=== PATIENT | male | born 1985 | race Caucasian/White ===

== ENCOUNTER 2019-04-21 08:09 | Day surgery (SDC) | payer BC ==
[~2019-04-21] VITALS: Ht 203.2 cm; Wt 130.6 kg
[2019-04-21] VITALS (12 sets, daily range): BP systolic 107–157; BP diastolic 60–93
--- NOTE | 2019-04-21 07:09 | Pre-Procedure Note/Attestation ---
Pre-Procedure Note/Attestation Complete Prior to Procedure Planned Procedure: right Procedure Narrative: rt ankle ORIF Indications for Procedure Pre-Operative Diagnosis: rt ankle fracture Attestation I attest that I discussed the nature of the procedure; its benefits; risks and complications; and alternatives (and the risks and benefits of such alternatives ), prior to the procedure, with the patient (or the patient's legal sales representative metals). I attest that, if there was a reasonable possibility of needing a blood transfusion, the patient (or the patient's legal sales representative metals) was given the [facility] standardized written summary, pursuant to the Bal[place] Blood Safety Act ([place] Health and Safety Code # 1645, as amended). I attest that I re-evaluated the patient just prior to the surgery and that there has been no change in the patient's H&P, except as documented below: none Lalo Gaffney MD Apr 21, 2019 07:09
[~2019-04-21 08:09] MED LIST: ALPRAZOLAM1 MG ORAL; BUPROPION XL300 MG ORAL; DIAZEPAM5 MG ORAL; IBUPROFEN600 MG ORAL; NAPROXEN500 M2 ORAL; OXYCODONE-ACET1 EAC3 ORAL; TRILEPTAL600 MG PO; ceFAZolin 1gm IVPB IVPB ONE; celeBREX 200mg Cap **SURGERY PATIENTS ONLY ORAL ONE; oxyCONTIN 20mg tab ORAL ONE
[2019-04-21] MEDS ORDERED: HYDROmorphone 1mg/ml Carpuject SUBQ PRN (09:00)
[2019-04-21] MEDS ORDERED: HYDROcodone/Acetamin 5/325 tab ORAL PRN (09:00)
[2019-04-21] MEDS ORDERED: Tylenol #3 tab (300mg/30mg) ORAL PRN (09:00)
[2019-04-21] MEDS ORDERED: oxyCONTIN 20mg tab ORAL ONE (09:05)
[2019-04-21] MEDS ORDERED: celeBREX 200mg Cap **SURGERY PATIENTS ONLY ORAL ONE (09:05)
[2019-04-21] MEDS ORDERED: NeoSporin Gu Irrig 1ml Amp IRRIG ONE (09:19)
[2019-04-21] MEDS ORDERED: Bacitracin 50000 Units Vial ONE (09:19)
[2019-04-21] MEDS ORDERED: Sterile Water Irrig 1000ml IRRIG ONE (09:30)
[2019-04-21] MEDS ORDERED: Ketorolac 30mg Inj ONE (09:30)
[2019-04-21] MEDS ORDERED: NS Irrig 1000ml ONE (09:30)
[2019-04-21] MEDS ORDERED: LR 1000ml ONE (09:30)
[2019-04-21] MEDS ORDERED: Midazolam 2mg/2ml Inj ONE ×2 (09:39→12:20)
[2019-04-21] MEDS ORDERED: Morphine Sulfate 10mg/ml Inj ONE (09:44)
[2019-04-21] MEDS ORDERED: Acetaminophen (Non formulary) 100 ML IV ONE (10:00)
[2019-04-21] MEDS ORDERED: fentaNYL 100 mcg/2 mL IV ONE (10:02)
[2019-04-21] MEDS ORDERED: Metoclopramide 10mg/2ml Inj ONE (10:29)
[2019-04-21] MEDS ORDERED: Lidocaine 1% MPF 10mg/ml 5ml ONE (10:29)
[2019-04-21] MEDS ORDERED: Propofol 200mg/20ml IV ONE (10:29)
--- NOTE | 2019-04-21 10:38 | Anethesia Preoperative Eval ---
Anesthesia Pre-op PMH/ROS General Date of Evaluation: Apr 21, 2019 Time of Evaluation: 09:20 Anesthesiologist: gene ASA Score: ASA 2 Mallampati Score Class I : Soft palate, uvula, fauces, pillars visible Class II: Soft palate, uvula, fauces visible Class III: Soft palate, base of uvula visible Class IV: Only hard plate visible Mallampati Classification: Class III Surgeon: Yeimy Diagnosis: Ankle fx Surgical Procedure: right ankle orif Anesthesia History: none Social History: smoking, alcohol use Family History: no anesthesia problems Allergies: Coded Allergies: No Known Allergies (Unverified , 07/09/16) Medications: see eMAR Patient NPO?: Yes NPO Date: Apr 21, 2019 NPO Time: 00:01 Past Medical History Cardiovascular: Denies: HTN, CAD, [place], valve dz, arrhythmia, other Pulmonary: Denies: asthma, COPD, ROB, other Gastrointestinal/Genitourinary: Denies: GERD, CRI, ESRD, other Neurologic/Psychiatric: Reports: depression/anxiety; Denies: dementia, CVA, TIA, other Endocrine: Denies: DM, hypothyroidism, steroids, other HEENT: Denies: cataract (L), cataract (R), glaucoma, NAKNEK (L), NAKNEK (R), other Hematology/Immune: Denies: anemia, DVT, bleeding disorder, other Musculoskeletal/Integumentary: Denies: OA, RA, DJD, DDD, edema, other Other: obesity PSxH Narrative: ear pinning Anesthesia Pre-op Phys. Exam Physician Exam Last Vital Signs Date Time Temp Pulse Resp B/P (MAP) Pulse Ox O2 Delivery O2 Flow Rate FiO2 04/21/19 08:45 97.5 74 20 130/82 97 Room Air Constitutional: NAD Neurologic: CN 2-12 intact Cardiovascular: RRR Respiratory: CTA Gastrointestinal: S/NT/ND Airway Exam Mallampati Classification 2 Mallampati Score: Class II MO: full ROM: full Dentures: no upper, no lower Anesthesia Pre-op A/P Studies Pre-op Studies: EKG - sr Risk Assessment & Plan Plan: general/ block Pre-Antibiotics Drug: ancef Time Given: 09:50 Jyoti Marquez CRNA Apr 21, 2019 10:38
[2019-04-21] MEDS ORDERED: fentaNYL 100 mcg/2 mL IV PRN (10:45)
[2019-04-21] MEDS ORDERED: Metoclopramide 10mg/2ml Inj IVP PRN (10:45)
[2019-04-21] MEDS ORDERED: Ketorolac 30mg Inj IV PRN (10:45)
[2019-04-21] MEDS ORDERED: Hydromorphone 0.5mg/0.5ml inj IVP PRN (10:45)
[2019-04-21] MEDS ORDERED: Bupivacaine w/Epi 0.5% 30ml Vial INJ ONE (11:10)
--- NOTE | 2019-04-21 11:27 | Brief Operative Note ---
Immediate Post Operative Note Operative Note Chief Complaint: rt ankle pain Pre-op Diagnosis: rt ankle fracture Procedure: rt ankle fracture Post-op Diagnosis: same as pre-op Findings: consistent w/pre-op dx studies Surgeon: md ronald Mold Mover: freddie swan Anesthesiologist: MD Markle/SLAVA Montes Anesthesia: general Specimen: none Complications: none Condition: stable Fluids: ns Estimated Blood Loss: minimal Drains: none Implant(s) used?: Yes - tiara, biomet Lalo Gaffney MD Apr 21, 2019 11:27
--- NOTE | 2019-04-21 11:51 | Immediate Post-Op Evaluation ---
Immediate Post-Op Evalulation Immediate Post-Op Evalulation Procedure: ORIF R ANKLE Date of Evaluation: Apr 21, 2019 Time of Evaluation: 11:50 IV Fluids: 800 Blood Pressure Systolic: 150 Blood Pressure Diastolic: 84 Pulse Rate: 73 Respiratory Rate: 14 O2 Sat by Pulse Oximetry: 98 Temperature (Fahrenheit): 97.0 Nausea: No Vomiting: No Complications none Patient Status: awake, reacts, patent Hydration Status: adequate Drug: ancef Given Within 1 Hr of Incision: Yes Time Given: 09:50 Jyoti Marquez CRNA Apr 21, 2019 11:51
--- NOTE | 2019-04-21 12:35 | Diagnostic Imaging Report ---
Indication: Intraoperative imaging COMPARISON: None FINDINGS: 4 fluoroscopic images were obtained intraoperatively. Fluoroscopic time 33 seconds. Open reduction internal fixation of the lateral malleolus fracture of the right ankle demonstrated multiple screws and a lateral compression plate reducing the fracture. IMPRESSION: Intraoperative imaging as described above
[2019-04-21] MEDS ORDERED: D5 1/2NS 1,000 ML IV SCH (13:00)
--- NOTE | 2019-04-21 17:36 | 48 Hour Post Anesthesia Eval ---
Post Anesthesia Evaluation Procedure: ORIF R ANKLE Date of Evaluation: Apr 21, 2019 Time of Evaluation: 17:36 Blood Pressure Systolic: 134 0: 60 Pulse Rate: 74 Respiratory Rate: 14 O2 Sat by Pulse Oximetry: 98 Airway: patent Nausea: No Vomiting: No Pain Intensity: 3 Hydration Status: adequate Cardiopulmonary Status: stable Mental Status/LOC: patient returned to baseline Follow-up Care/Observations: na Post-Anesthesia Complications: none Follow-up care needed: N/A Jyoti Marquez CRNA Apr 21, 2019 17:36
--- NOTE | 2019-04-21 19:00 | Operative Note - Dictated ---
DATE OF OPERATION: 04/21/2019 PREOPERATIVE DIAGNOSIS: Right ankle Abel B fibular fracture with displacement and shortening as well as disruption of syndesmosis. POSTOPERATIVE DIAGNOSIS: Right ankle Abel B fibular fracture with displacement and shortening as well as disruption of syndesmosis. PROCEDURE: 1. Open reduction and internal fixation of the fibula with one-third 6-hole fibular plate. 2. Open reduction and internal fixation of the syndesmosis with fixation using a by [employer] JuggerLoc stainless steel button. SURGEON: Lalo Gaffney M.D. ASSISTANT DIRECTOR OF SECURITY: Joanie Ruiz PA-C. ANESTHESIOLOGIST: , nurse practitioner. ANESTHESIA: General LMA anesthesia. ESTIMATED BLOOD LOSS: Less than 20 mL. TOURNIQUET TIME: 53 minutes. COMPLICATIONS: None. BRIEF HISTORY: The patient is a pleasant 33-year-old gentleman who has had ongoing right ankle pain after a fall in [place]. He came to [place], was evaluated, and was noted to have a displaced and shortened fibular fracture with disruption of syndesmosis with widening of the medial space. After full discussion of risks, benefits of the surgery, and complications associated with it including infection, bleeding, neurovascular complication, possibility of malunion, possibility of nonunion, possibility of need for further surgery, possible disruption of syndesmosis needing additional fixation, and need for further surgeries down the line, he opted for surgical treatment as described above. OPERATIVE PROCEDURE: The patient was brought to the operating room and was placed supine. All pressure points were well padded. General LMA anesthesia was induced. Right leg was prepped and draped in usual sterile fashion. The right leg was exsanguinated. Tourniquet was inflated to 275 mmHg. A time-out was performed. Preoperative antibiotics were given. At this point, the standard lateral incision was made over the fibula. Incision was taken through subcutaneous tissue. The care was given to protect the neurovascular structures. The fracture was identified. Soft tissue dissection was undertaken proximally and distally. Once this was completed, the fibular fracture was visualized. This was shortened and displaced. Extensive soft tissue releases have to be done anterior and posterior to the fracture site to mobilize the fracture and to reduce the fracture near anatomically. The fracture was reduced well on AP and lateral view. At this point, an interfragmentary screw was placed from anterior to posterior holding the fracture in place. At this point, the clamps were removed and a one-third fibular plate was applied and 2 bicortical fixation was obtained proximally and 2 distally. One of the holes was right over the fracture site. One of the holes distally was used for syndesmotic fixation. At this point, the fracture appears to be reduced anatomically on AP and lateral and the fibula was in excellent position. At this point, care was given to the syndesmosis. A small incision was over the medial side over the medial malleolus. A large reduction clamp was applied onto one of the screws on the lateral fibula and on the medial malleolus. While holding the ankle in neutral dorsiflexion, the syndesmosis was reduced. The clear space appeared to be equal in all sides and overlap of the tibia fibula appeared to be excellent. At this point, a 2.9 mm drill hole was made over the lateral cortex of the fibula and medial cortex of the fibula. A 2.9 mm hole was then drilled onto the lateral cortex of the tibia extending to the medial cortex, but the medial cortex was not penetrated. At this point, a tricortical JuggerLoc device was used to penetrate 3 cortices. The anchor was well fixed on the lateral tibial cortex and it was with pulling. At this point, the button was then toggled down to the stainless steel one-third fibular plate. The button was stainless steel as well. This provided excellent fixation of syndesmosis. X-rays were obtained with a clamp on and then subsequent without clamp on and there was no loss of reduction. Wounds were thoroughly irrigated using copious amount of fluid. The syndesmotic reduction as well as fracture reduction was checked on AP and lateral mortise views and appeared to be perfect. At this point, subcutaneous tissue was closed using 2-0 Vicryl suture. Skin was closed using 3-0 Monocryl suture. Posterior splint and a stirrup splint was applied with the ankle in neutral dorsiflexion. The patient tolerated the procedure well without any complication, was taken recovery room in stable condition. All lap counts and instrument counts were correct. Lalo Veronique Gaffney DR: NATALIA JOB#: [id number] CC:
== END 2019-04-21 15:00 | disposition home or self-care (01) ==
LOC: SUR 08:09
DX: S82.64XA Nondisplaced fracture of lateral malleolus of right fibula, initial encounter for closed fracture (principal); Z87.891 Personal history of nicotine dependence; F32.9 Major depressive disorder, single episode, unspecified; F41.9 Anxiety disorder, unspecified; E66.9 Obesity, unspecified; Z68.31 Body mass index [BMI] 31.0-31.9, adult; X58.XXXA Exposure to other specified factors, initial encounter; Y92.9 Unspecified place or not applicable
CPT/HCPCS: 27792; 27829; 73600; 76000; C1713; J0690; J1170; J1885; J2250; J2270; J2405; J2704; J2765; J3010; 94003; 94150